=== PATIENT | female | born 1980 | race American Indian/Alaskan Native ===

== ENCOUNTER 2019-03-20 19:32 | Outpatient (CLI) | payer OTHER | END 2019-03-20 19:50 | disposition home or self-care (01) | LOC: OBS/DEL 19:32 | DX: O47.1 False labor at or after 37 completed weeks of gestation (principal) ==

== ENCOUNTER 2019-04-03 10:26 | Outpatient (CLI) | payer OTHER | END 2019-04-03 11:31 | disposition home or self-care (01) | LOC: NST 10:26 | DX: Z34.83 Encounter for supervision of other normal pregnancy, third trimester (principal) ==

== ENCOUNTER 2019-04-12 10:34 | Outpatient (CLI) | payer OTHER ==
[~2019-04-12 10:34] MED LIST: OBSTETRIX DHA1 EACH PO
== END 2019-04-12 10:42 | disposition home or self-care (01) ==
LOC: MAMO-SONO 10:34 → EDBD 10:34 → MAMO-SONO 10:42
DX: N63.10 Unspecified lump in the right breast, unspecified quadrant (principal); N63.20 Unspecified lump in the left breast, unspecified quadrant